=== PATIENT | female | born 1965 | race African-American/Black ===

== ENCOUNTER 2017-05-01 18:12 | Inpatient (IN) | payer BC ==
[~2017-05-01] VITALS: Ht 167.6 cm; Wt 109.1 kg
[2017-05-01] MEDS ORDERED: POTA10TA17 PO (18:22)
[2017-05-01] MEDS ORDERED: THYR16.2 PO (18:22)
[2017-05-01] MEDS ORDERED: HYDR25TA4 PO (18:22)
--- NOTE | 2017-05-01 18:30 | NUR ---
PT BIB [facility] FROM HOME, C/O CHEST PAIN THAT STARTED 2 HRS [employer]. NON-RADIATING. PER PT- "IT HURTS WHEN I PRESS ON IT". DENIES TRAUMA. VSS. SEEN BY FOR EVAL. SAFETY AND COMFORT MEEASURES PROVIDED. WILL MONITOR.
--- NOTE | 2017-05-01 18:35 | NUR ---
EKG DONE AT BS.
[2017-05-01 19:14] LABS: BASOPHILS # (AUTO) 0.1 /CMM (0.0-0.2); BASOPHILS % (AUTO) 0.8 % (0.0-2.0); EOSINOPHILS # (AUTO) 0.1 /CMM (0.0-0.7); EOSINOPHILS % (AUTO) 1.6 % (0.0-6.0); HEMATOCRIT 39 % (33-45); HEMOGLOBIN 12.8 g/dL (11.5-14.8); LYMPHOCYTES # (AUTO) 1.9 /CMM (0.8-4.8); LYMPHOCYTES % (AUTO) 29.4 % (20.0-44.0); MEAN CORPUSCULAR HEMOGLOBIN 30 PG (26.0-33.0); MEAN CORPUSCULAR HGB CONC 33 g/dl (31.0-36.0); MEAN CORPUSCULAR VOLUME 92 fL (82-100); MONOCYTES # (AUTO) 0.6 /CMM (0.1-1.30); MONOCYTES % (AUTO) 8.7 % (2.0-12.0); NEUTROPHILS # (AUTO) 3.8 /CMM (1.8-8.9); NEUTROPHILS % (AUTO) 59.5 % (43.0-81.0); PLATELET COUNT (AUTO) 366 /CMM (150-450); RED BLOOD CELL COUNT(AUTO) 4.27 MIL/uL (4.0-5.2); WHITE BLOOD COUNT (AUTO) 6.5 K/uL (4.3-11.0)
--- NOTE | 2017-05-01 19:16 | NUR ---
RECEIVED REPORT FROM ALLYSON LARIOS.
[2017-05-01 19:25] LABS: CALCIUM, SERUM 9.1 mg/dL (8.5-10.1); CARBON DIOXIDE 31 mmol/L (21-32); CHLORIDE 108 mmol/L (98-107); CREATININE 1.1 mg/dL (0.6-1.3); GLUCOSE 125 mg/dL (74-106); POTASSIUM 3.5 mmol/L (3.5-5.1); SODIUM SERUM 144 mmol/L (136-145); UREA NITROGEN, BLOOD 16 mg/dL (7-18)
[2017-05-01 19:27] LABS: INR 0.95 (0.87-1.13); PROTHROMBIN TIME 9.9 SECS (9.5-12.7)
[2017-05-01 19:33] LABS: TROPONIN I < 0.017 ng/mL (0.00-0.056)
[2017-05-01] MEDS ORDERED: IV NS 0.9% 1,000 ML IV PRN (19:52)
--- NOTE | 2017-05-01 19:59 | NUR ---
DR. SOUZA SPEAKING TO DR. MCCORMICK REGARDING ADMISSION.
[2017-05-01] MEDS ORDERED: ENOXAPARIN SODIUM 40 MG/0.4 ML DISP.SYRIN SQ SCH (20:00)
[2017-05-01] MEDS ORDERED: ACETAMINOPHEN 325 MG TABLET PO PRN (20:00)
[2017-05-01] MEDS ORDERED: ZOLPIDEM TARTRATE 5 MG TABLET PO PRN (20:00)
[2017-05-01] MEDS ORDERED: MAGNESIUM HYDROXIDE 30 ML UDC PO PRN (20:00)
[2017-05-01] MEDS ORDERED: NITROGLYCERIN 0.4 MG/TAB BOTTLE SL PRN (20:00)
[2017-05-01] MEDS ORDERED: MAG HYDROX/AL HYDROX/SIMETH 30 ML UDC PO PRN (20:00)
[2017-05-01] MEDS ORDERED: MORPHINE SULFATE INJ 2 MG/ML DISP.SYRIN IV PRN (20:00)
[2017-05-01] MEDS ORDERED: Z GUARD REMEDY 2 OZ OINT TP PRN (20:00)
[2017-05-01] MEDS ORDERED: HYDROCODONE/APAP 5/325MG 1 EACH TABLET PO PRN (20:00)
[2017-05-01] MEDS ORDERED: ONDANSETRON HCL/PF 4 MG/2 ML VIAL IVP PRN (20:00)
--- NOTE | 2017-05-01 20:13 | NUR ---
PT ASSIGNED TO BED 320-1
--- NOTE | 2017-05-01 20:15 | NUR ---
REPORT GIVEN TO ALLYSON CLARK FOR TELE BED 320-1
[2017-05-01 20:35] VITALS: BP 122/84
--- NOTE | 2017-05-01 20:35 | NUR ---
RN NOTES ADMITTED A
--- NOTE | 2017-05-01 20:35 | NUR ---
RN NOTES ADMITTED A 52 YEARS OLD FEMALE PT FROM ER [facility]IA [facility] WITH PRIMARY DIAGNOSIS OF CHEST PAIN UNDER DR SOUZA. PT ALERT AND ORIENTED X4, NO SOB, NOT IN DISTRESS, ON ROOM AIR AND TOLERATED WELL. VITAL SIGNS STABLE, AFEBRILE. CHEST PAIN AT TOLERABLE LEVEL AT THIS TIME /10, PT DESCRIBE IT PRESSURE LIKE PAIN. DENIES DIZZINESS, NAUSEA AND VOMITING. TELE MONITOR READS SINUS RHYTHM WITH HEART RATE AT 93. IV ACCESS ON LEFT AC PATENT AND INTACT. SKIN CLEAR AND INTACT.PT IS AMBULATORY WITH STEADY GAIT. KEPT PT COMFORTABLE AND ATTENDED. ALL ORDERS NOTED AND CARRIED OUT. WILL CONTINUE TO MONITOR PT.
--- NOTE | 2017-05-01 20:46 | NUR ---
PT TRASNFERED PER ACLS PROTOCOL TO BED 320-2
[2017-05-01 22:00] VITALS: BP 122/83
[2017-05-01] MEDS ORDERED: ATORVASTATIN 40 MG TABLET PO SCH (22:00)
[2017-05-02] VITALS: BP 121/76
[2017-05-02 04:00] VITALS: BP 130/78
[2017-05-02 06:25] LABS: BASOPHILS % (AUTO) 0.6 % (0.0-2.0); EOSINOPHILS # (AUTO) 0.1 /CMM (0.0-0.7); EOSINOPHILS % (AUTO) 2.2 % (0.0-6.0); HEMATOCRIT 38 % (33-45); HEMOGLOBIN 12.9 g/dL (11.5-14.8); LYMPHOCYTES # (AUTO) 2.4 /CMM (0.8-4.8); LYMPHOCYTES % (AUTO) 42.7 % (20.0-44.0); MEAN CORPUSCULAR HEMOGLOBIN 31 PG (26.0-33.0); MEAN CORPUSCULAR HGB CONC 34 g/dl (31.0-36.0); MEAN CORPUSCULAR VOLUME 92 fL (82-100); MONOCYTES # (AUTO) 0.5 /CMM (0.1-1.30); MONOCYTES % (AUTO) 9.2 % (2.0-12.0); NEUTROPHILS # (AUTO) 2.6 /CMM (1.8-8.9); NEUTROPHILS % (AUTO) 45.3 % (43.0-81.0); PLATELET COUNT (AUTO) 328 /CMM (150-450); RDW COEFFICIENT OF VARIATION 13.6 (11.5-15.0); RED BLOOD CELL COUNT(AUTO) 4.12 MIL/uL (4.0-5.2); WHITE BLOOD COUNT (AUTO) 5.7 K/uL (4.3-11.0)
[2017-05-02 06:49] LABS: CALCIUM, SERUM 8.4 mg/dL (8.5-10.1); MAGNESIUM 1.8 mg/dL (1.8-2.4); PHOSPHORUS 3.3 mg/dL (2.5-4.9); POTASSIUM 3.6 mmol/L (3.5-5.1)
--- NOTE | 2017-05-02 07:07 | NUR ---
RN NOTED PT AWAKE, HOB ELEVATED, NO SOB, NOT IN DISTRESS, ON ROOM AIR AND TOLERATED WELL. NO COMPLAIN OF CHEST PAIN, DIZZINESS, NAUSEA AND VOMITING. VITAL SIGNS STABLE, AFEBRILE. TELEMONITOR READS SINUS RHYTHM WITH HEART RATE AT 68. PT AMBULATORY WITH STEADY GAIT. PT IN STABLE CONDITION. WILL ENDORSE TO MORNING RN FOR CONTINUITY OF CARE.
[2017-05-02] MEDS ORDERED: PANTOPRAZOLE 40 MG TABLET.DR PO SCH (07:30)
--- NOTE | 2017-05-02 07:30 | NUR ---
MS RN NOTES PATIENT IS A/OX4. NO S//S OF SOB OR DISTRESS NOTED. CALL LIGHT WITHIN REACH. BED IN LOWEST, LOCKED POSITION. WILL MONITOR THROUGHOUT SHIFT
[2017-05-02 08:00] VITALS: BP 133/85
[2017-05-02] MEDS ORDERED: HYDROCHLOROTHIAZIDE 25 MG TABLET PO SCH (09:00)
[2017-05-02] MEDS ORDERED: ASPIRIN 81 MG TAB.CHEW PO SCH (09:00)
[2017-05-02 12:00] VITALS: BP 115/77
[2017-05-02] MEDS ORDERED: ASPI-605 PO (13:05)
--- NOTE | 2017-05-02 15:00 | NUR ---
MS RN NOTES PATIENT DISCHARGED IN STABLE CONDITION. NO S/S OF SOB OR DISTRESS NOTED. PATIENT WAS ESCORTED DOWNSTAIRS WITH DAUGHTER. ID BAND REMOVED. IV REMOVED. DISCHARGE PROTOCOL FOLLOWED. PROVIDED DISCHARGE INSTRUCTIONS TO PATIENT. INFORMED PATIENT TO FOLLOW UP WITH NUCLEAR STRESS TEST OUTPATIENTLY AND TO FOLLOW UP WITH PCP WITHIN 1 WEEK. PATIENT VERBALIZED UNDERSTANDING. AWARE OF ALL ABNORMAL LABS.
== END 2017-05-02 15:00 | disposition home or self-care (01) | DRG 303 ==
LOC: ER 18:14 → TELE 20:18
PROVIDERS: ADMIT Internal Medicine; ATTEND Internal Medicine
DX: I25.119 Atherosclerotic heart disease of native coronary artery with unspecified angina pectoris (principal); E44.0 Moderate protein-calorie malnutrition; E66.9 Obesity, unspecified; Z68.38 Body mass index [BMI] 38.0-38.9, adult; Z71.3 Dietary counseling and surveillance; E78.5 Hyperlipidemia, unspecified; E03.9 Hypothyroidism, unspecified; Z83.3 Family history of diabetes mellitus; Z82.49 Family history of ischemic heart disease and other diseases of the circulatory system; F41.0 Panic disorder [episodic paroxysmal anxiety]; F43.10 Post-traumatic stress disorder, unspecified; I25.2 Old myocardial infarction; I11.9 Hypertensive heart disease without heart failure; Z79.899 Other long term (current) drug therapy
CPT/HCPCS: 36415; 71010-TC; 80048-TC; 80061-TC; 83735-TC; 84100-TC; 84484-TC; 85025-TC; 85730-TC; 87081-TC; 93307-TC; A4606; J7030; Z7610

== ENCOUNTER 2020-11-19 21:57 | Emergency (ER) | payer BC, MEDICAID ==
[~2020-11-19] VITALS: Ht 167.6 cm; Wt 106.1 kg
[~2020-11-19 21:57] MED LIST: ASPI-605 PO; HYDR25TA4 PO; POTA10TA17 PO; THYR16.2 PO
--- NOTE | 2020-11-19 22:11 | NUR ---
C/O HIGH BP SINCE NOON 150'S. TOOK HYDROCHLOTHIAZIDE @ NOON. DENIED CP, H/A , OR DIZZINESS. PT AMBULATORY TO BED 9, WAS PLACED ON A MONITOR . WILL CONT TO LORRAINE ,
[2020-11-19] MEDS: CEFTRIAXONE 1 G in IV D5W 50 ML IV ONE (23:30)
[2020-11-19 23:55] LABS: BASOPHILS # (AUTO) 0.1 /CMM (0.0-0.2); BASOPHILS % (AUTO) 1.1 % (0.0-2.0); HEMATOCRIT 42 % (33-45); HEMOGLOBIN 13.9 g/dL (11.5-14.8); LYMPHOCYTES # (AUTO) 1.9 /CMM (0.8-4.8); LYMPHOCYTES % (AUTO) 30.9 % (20.0-44.0); MEAN CORPUSCULAR HGB CONC 33 g/dl (31.0-36.0); MEAN CORPUSCULAR VOLUME 94 fL (82-100); MONOCYTES # (AUTO) 0.5 /CMM (0.1-1.30); MONOCYTES % (AUTO) 7.5 % (2.0-12.0); NEUTROPHILS # (AUTO) 3.7 /CMM (1.8-8.9); NEUTROPHILS % (AUTO) 59.5 % (43.0-81.0); PLATELET COUNT (AUTO) 336 /CMM (150-450); RED BLOOD CELL COUNT(AUTO) 4.53 MIL/uL (4.0-5.2); WHITE BLOOD COUNT (AUTO) 6.2 K/uL (4.3-11.0)
[2020-11-20 00:14] LABS: CALCIUM, SERUM 9.3 mg/dL (8.5-10.1); CARBON DIOXIDE 27 mmol/L (21-32); CHLORIDE 104 mmol/L (98-107); GLUCOSE 98 mg/dL (74-106); POTASSIUM 3.5 mmol/L (3.5-5.1); SODIUM SERUM 142 mmol/L (136-145); UREA NITROGEN, BLOOD 17 mg/dL (7-18)
[2020-11-20 01:03] VITALS: BP 155/90
--- NOTE | 2020-11-20 01:03 | NUR ---
Patient discharged to home in stable condition. Written and verbal after care instructions given. Patient verbalizes understanding of instruction.
== END 2020-11-20 01:04 | disposition home or self-care (01) ==
LOC: ER 21:58
DX: I10 Essential (primary) hypertension (principal); E03.9 Hypothyroidism, unspecified; Z98.890 Other specified postprocedural states; Z79.82 Long term (current) use of aspirin
CPT/HCPCS: 36415; 71045; 80048; 84484; 84703; 85025; 93005 ×2; 99285; J0696; J7060